=== PATIENT | male | born 1985 | race Caucasian/White ===

== ENCOUNTER 2024-03-29 19:51 | Emergency (ER) | payer BC, SELFPAY ==
[2024-03-29 19:51] VITALS: BMI 37.6
[2024-03-29 19:52] VITALS: BP 164/102
[2024-03-29 20:09] VITALS: BP 157/94
[2024-03-29 20:48] LABS: % Basophils 0.6 % (0-2); % Immature Granulocytes 0.2 % (0-0.5); % Lymphocytes 43.5 % (20.5-51.1); % Monocytes 6.8 % (1.7-9.3); % Neutrophils 46.9 % (42.2-75.2); Absolute Eosinophils 0.1 10^3/uL (0-0.7); Absolute Lymphocytes 2.8 10^3/uL (1.2-3.4); Absolute Monocytes 0.4 10^3/uL (0.1-0.6); Absolute Neutrophils 3.1 10^3/uL (1.4-6.5); Hemoglobin 14.5 g/dL (13.0-18.0); Mean Corp Hgb Conc. 35.4 g/dL (33.0-37.0); Mean Corpuscular Hgb 28.5 pg (27.0-31.0); Mean Corpuscular Volume 80.7 fL (80.0-94.0); Mean Platelet Volume 9.2 fL (7.4-10.4); Nucleated Red Blood Cells % 0 % (-); Platelet Count 227 10^3/uL (130-400); Red Blood Cell Count 5.08 10^6/uL (4.70-6.10); Red Cell Dist. Width 12.8 % (11.5-14.5); White Blood Cell Count 6.5 10^3/uL (4.8-10.8)
[2024-03-29 21:02] LABS: ALT (SGPT) 40 U/L (0-50); AST (SGOT) 36 U/L (17-59); Albumin 4.6 g/dl (3.5-5.0); Alkaline Phosphatase 74 U/L (38-126); Blood Urea Nitrogen 19 mg/dl (9-20); Calcium 9.7 mg/dl (8.4-10.2); Carbon Dioxide 27 mmol/L (22-30); Chloride 103 mmol/L (98-107); Estimated Creatinine Clearance > 125 ml/min; Glucose 101 mg/dl (70-99); Lipase 124 U/L (23-300); Potassium 4.1 mmol/L (3.5-5.1); Sodium 139 mmol/L (135-145); Total Bilirubin 0.5 mg/dl (0.2-1.3); Total Protein 7.5 g/dl (6.3-8.2); eGFR > 60.00
[2024-03-29 22:00] VITALS: BP 160/94
--- NOTE | 2024-03-29 23:54 | ED.GENMED ---
History of Present Illness
General
Chief Complaint: Abdominal Pain
Source: patient
Exam Limitations: none
Time Seen by Provider: 03/29/24 20:05
Nursing documentation reviewed up to this point in time: agreed with
Travel History
Have you had any contact with someone who has COVID-19?: No
Do you have any symptoms of coronavirus? Fever > 100 degrees, chills, cough, shortness of breath, sore throat, loss of taste or smell, muscle aches, or headache?: No
History of Present Illness
History of Present Illness:
39 yo male w hx of GERD, fatty liver, Scleroderma states RUQ pain comes and goes past 3 days. Worse 15 minutes after eating, when he bends over he feels 'like a baseball pushing' epigastric region. Today had 3 bouts of watery, nonbloody diarrhea.
No recent travel, no known sick contacts. Denies fever, CP, SOB, trouble urinating.
Past History
Past History
ED Past Medical History: Other (Prostatitis)
ED Past Surgical History: Appendectomy
Social History
Tobacco: Former smoker
Alcohol: Occasional
Personal:
Living: with family
Employment: Employed
Review of Systems
Review of Systems
Allergies reviewed?: Yes
All Other Systems: ROS reviewed and negative except as documented in HPI and ROS
Constitutional: Denies fever
Respiratory: Denies trouble breathing
Cardiac: Denies chest pain
ABD/GI: Reports abdominal pain and diarrhea (today had several episodes, last one 7:30 p.m.); Denies nausea, vomiting, bloody stools, black stools or anorexia
: Denies dysuria, difficulty voiding or urgency
Musculoskeletal: Reports no symptoms
Skin: Reports no symptoms
Neurological: Reports no symptoms
Phy Exam
Physical Exam
Physical Exam:
GENERAL: No acute distress. A&Ox3.
CONSTITUTIONAL: Afebrile.
EYES: PERRL, conjunctivae normal
RESPIRATORY: Regular respirations, nonlabored, lungs clear.
CARDIOVASCULAR: Regular rate and rhythm, no murmurs, no rubs.
GI: Soft, rotund, tender RUQ and epigastric area, normal BS
MUSCULOSKELETAL: Moves with ease. Well perfused.
SKIN: Warm, dry, pink
PSYCH: Normal mood and affect. Well kept, interactive and appropriate
NEUROLOGIC: Awake, alert and oriented. No focal neurological deficits update Note
Course
Orders/Labs/Results
Orders:
Orders
03/29/24 20:32
IV Insert/Care/Rem.- Treatment PRN
03/29/24 20:41
Complete Blood Count/With Diff Urgent
Comprehensive Metabolic Panel Urgent
Lipase Urgent
03/29/24 22:42
US Abdomen Complete/Upper Urgent
Comment:
Reason For Exam: RUQ pain
03/29/24 23:55
0.9% Sodium Chloride 500 ml [Nss] 500 ml IV BOLUS
03/30/24 00:00
CT Abd/Pel (IV only)-DH only Urgent
Reason For Exam: RUQ and ep patientigastric pain
Abnormal Lab Results
03/29/24
20:41
Glucose 101 H mg/dl
(70-99)
03/29/24 20:41
03/29/24 20:41
Vital Signs
Initial and Last Documented VS:
Initial Vital Signs
Temp Pulse Resp BP Pulse Ox
98.1 F 82 22 164/102 99
03/29/24 19:52 03/29/24 19:52 03/29/24 19:52 03/29/24 19:52 03/29/24 19:52
Last Documented Vital Signs
Temp Pulse Resp BP Pulse Ox
98.1 F 82 18 155/94 99
03/29/24 19:52 03/30/24 01:28 03/30/24 01:28 03/30/24 01:28 03/30/24 01:28
Personal Security Specialist consulted with Physician
Personal Security Specialist consulted with physician?: Yes
Name of Physician Consulted: Farhana
MDM/Problems Addressed
Differential Diagnosis Includes:
Cholecystitis, choledocholithiasis, biliary colic, GERD, pancreatitis
MDM/Problems Addressed:
39 yo male w hx of GERD, fatty liver, Scleroderma states RUQ pain comes and goes past 3 days. Worse 15 minutes after eating, when he bends over he feels 'like a baseball pushing' epigastric region. Today had 3 bouts of watery, nonbloody diarrhea.
No recent travel, no known sick contacts. Denies fever, CP, SOB, trouble urinating.
Afebrile, NAD
9:30 PM
CBC normal
CMP normal
Lipase normal
IMPRESSION:
1. No sonographic evidence for cholelithiasis or acute cholecystitis.
2. Increased echogenicity in the liver, compatible with underlying hepatocellular disease, which most commonly relates to fatty infiltration of the liver.
3. Mild splenomegaly..
CAT scan ordered, with IV contrast, normal saline IV 500 mL ordered
03/30/2024 1:20 AM
No diarrhea since arrival
Preliminary radiology report of the CAT scan abdomen pelvis with IV contrast: Negative
There is nothing in the workup today to explain patient's symptoms.
copies of reports given to pt with full explanation,all questions answered
He has a GI doctor for f/u
Pt ambulated out with normal gait, appreciative of the care
*Critical Care Note
Total Time (30-74mins, 75-104mins- exclusive of procedures): Not Applicable
ED Attending Note
-
Portions of this chart may have been created with voice recognition software.� Occasional wrong word or��sound alike� substitutions may have occurred due to the inherent limitations of voice recognition software.
Discharge Plan
Departure
Patient Disposition: Home (Routine Discharge)
Date of Disposition: 03/30/24
Time of Disposition: 01:27
Patient with high blood pressure during this ER visit?: Yes
Condition: Fair
Discharge Problem:
Abdominal pain in male
Instructions: Acid Reflux and GERD in Adults (DC), Abdominal Pain
Prescriptions:
No Action
prednisone 20 MG tablet
20 mg PO BID Qty: 10 0RF
tramadol 100 mg tablet
100 mg PO Q6H PRN (Reason: pain) Qty: 20 0RF
Referrals:
Your, GI Doctor [Other] - Next open appointment
Sona Winter NP [Family Provider] -
Activity Restrictions/Additional Instructions:
As we discussed, your workup here today shows nothing worrisome. Specifically nothing to explain your pain.
Call your GI doctor tomorrow and make a follow-up visit. Tell them you were seen in the ER here tonight and you should be seen sometime within the next 2 weeks.
Return here at anytime for worsening abdominal pain, fever, vomiting or feeling worse in any way.
Be sure you are taking your omeprazole
Interventions
Interventions:
*Risk Screen - Suicide Last Done: 03/29/24 19:52
*General Assessment Last Done: 03/30/24 01:35
*Neglect/Abuse Screening Last Done: 03/29/24 19:52
*ED COVID-19 Vaccine History Last Done: 03/30/24 01:35
*Nursing Disposition Last Done: 03/30/24 01:35
[facility] Assessment Last Done: 03/29/24 20:05
Discharge Date and Time
Discharge Date/Time: 03/30/24 01:36
Print Language: LITHUANIAN
[2024-03-30] VITALS: BP 152/95
[2024-03-30] MEDS: NSS 500 IV
[2024-03-30 01:28] VITALS: BP 155/94
== END 2024-03-30 01:36 | disposition home or self-care (01) ==
LOC: EMR 19:51
PROVIDERS: Registered Nurse; EMERGENCY PHYSICIAN Emergency Medicine; FAMILY PHYSICIAN Nurse Practitioner Adult Health
DX: R10.11 Right upper quadrant pain (principal); R19.7 Diarrhea, unspecified; K21.9 Gastro-esophageal reflux disease without esophagitis; K76.0 Fatty (change of) liver, not elsewhere classified; R16.1 Splenomegaly, not elsewhere classified; R03.0 Elevated blood-pressure reading, without diagnosis of hypertension; M34.9 Systemic sclerosis, unspecified; Z86.16 Personal history of COVID-19; Z87.891 Personal history of nicotine dependence
CPT/HCPCS: 99285; 96360; 74177; 76700; 80053; 83690; 85025; Q9967